=== PATIENT | female | born 1935 ===

== ENCOUNTER 2020-08-17 12:30 | Inpatient (IN) | payer OTHER ==
[~2020-08-17] VITALS: Ht 152.4 cm; Wt 38.1 kg
[2020-08-17] MEDS ORDERED: AVAPRO75 MG PO (15:12)
[2020-08-17] MEDS ORDERED: TENORMIN25 MG PO (15:12)
[2020-08-17] MEDS ORDERED: GABAPENTIN100 M2 PO (15:13)
[2020-08-17] MEDS ORDERED: TRAZODONE HCL150 MG PO (15:14)
[2020-08-17] MEDS ORDERED: SIMVASTATIN5 MG PO (15:14)
[2020-08-17] MEDS ORDERED: OMEGA-31000 MG PO (15:15)
[2020-08-17] MEDS ORDERED: SINGULAIR4 MG (15:15)
[2020-08-17] MEDS ORDERED: CHILDREN'S ASPI81 MG PO (15:15)
[2020-08-17] MEDS ORDERED: COQ-1030 MG PO (15:15)
[2020-08-22] MEDS ORDERED: SIMVASTATIN20 MG (08:09)
[2020-08-22] MEDS ORDERED: GALANTAMINE HBR8 MG (08:09)
[2020-08-22] MEDS ORDERED: MEMANTINE HCL5 MG (08:09)
[2020-08-22] MEDS ORDERED: ATENOLOL50 MG (08:09)
[2020-08-22] MEDS ORDERED: MONTELUKAST SOD10 MG (08:09)
[2020-08-22] MEDS ORDERED: IRBESARTAN150 MG (08:09)
== END 2020-08-26 10:34 | disposition home or self-care (01) | DRG 740 ==
LOC: OB/GYN 08-22 05:08 → O/R 08-22 05:08 → SURH 08-22 07:00 → OB/GYN 08-22 10:21 → SURH 08-22 12:30 → OB/GYN 08-26 10:34
PROVIDERS: ADMIT Specialist; ATTEND Specialist
PROC: 0UT90ZZ Resection of Uterus, Open Approach (ICD-10-PCS; principal; 2020-08-23)
PROC: 0UT20ZZ Resection of Bilateral Ovaries, Open Approach (ICD-10-PCS; 2020-08-23)
PROC: 0UT70ZZ Resection of Bilateral Fallopian Tubes, Open Approach (ICD-10-PCS; 2020-08-23)
PROC: 07BC0ZZ Excision of Pelvis Lymphatic, Open Approach (ICD-10-PCS; 2020-08-23)
PROC: 30233N1 Transfusion of Nonautologous Red Blood Cells into Peripheral Vein, Percutaneous Approach (ICD-10-PCS; 2020-08-23)
DX: C54.1 Malignant neoplasm of endometrium (principal); C77.9 Secondary and unspecified malignant neoplasm of lymph node, unspecified; D64.9 Anemia, unspecified; I10 Essential (primary) hypertension; E78.5 Hyperlipidemia, unspecified; Z20.822 Contact with and (suspected) exposure to COVID-19